=== PATIENT | female | born 1985 | race Caucasian/White ===

== ENCOUNTER → 2021-08-20 07:42 | Outpatient (CLI) | payer BC, SELFPAY ==
--- NOTE | ~2021-08-20 | US_ITS ---
EXAMINATION: US right upper quadrant EXAM DATE: 08/20/2021 08:19 INDICATION: Abdominal pain. TECHNIQUE: Multiple grayscale and Doppler images of the abdomen right upper quadrant were obtained (b y a technologist who performed the scan) and subsequently reviewed. There is no prior study for kamar bey. FINDINGS: The pancreatic head and body are normal in appearance. The pancreatic tail is not visualized. The l iver has normal echogenicity and contour. There are no focal liver lesions identified. There is no evidence of intrahepatic biliary duct dilation. Portal venous flow was seen in the hepatopedal, nor mal direction and has normal Doppler waveform. There is no right-sided hydronephrosis. Common bile duct measures 4 mm, which is normal. The gallbladder wall is normal in thickness, with ex pected amount of distention. No sonographic evidence of pericholecystic fluid. There is a periphera lly calcified gallstone in the gallbladder neck. Technologist performing exam reports patient did no t demonstrate sonographic John's sign. Please note that this sign is less reliable in patients who have received pain medication. There is small complex cystic region within the which appears to be either within the liver or in the gallbladder fossa between the gallbladder and liver, measuring about 2 cm. Gallbladder fossa which i s nonspecific. Could be chronic seroma but small abscess or cystic mass not excludable. IMPRESSION: 1. Small nonspecific complex cystic region at gallbladder fossa, differential diagnosis including se kari, less likely abscess or cystic mass. If clinically indicated, consider CT abdomen with contrast. 2. Cholelithiasis. Reviewed, dictated and finalized at location B. IMPRESSION: 1. Small nonspecific complex cystic region at gallbladder fossa, differential diagnosis including seroma, less likely abscess or cystic mass. If clinically i ndicated, consider CT abdomen with contrast. 2. Cholelithiasis.
== END ==
PROVIDERS: PCP Physician Assistant Medical; Visit Provider Physician Assistant Medical
DX: R10.9 Unspecified abdominal pain (principal); K80.20 Calculus of gallbladder without cholecystitis without obstruction
CPT/HCPCS: 76705

== ENCOUNTER → 2021-09-08 08:20 | Outpatient (CLI) | payer BC, SELFPAY ==
--- NOTE | ~2021-09-08 | CT_ITS ---
EXAMINATION: CT abdomen w con DATE: 09/08/2021 08:47 INDICATION: Abdominal pain TECHNIQUE: Computed tomography (CT) of the abdomen was performed with 100 cc Omnipaque 350 intravenou s contrast. Automated exposure control and iterative reconstruction technique were employed. Exam dos e: 356.03 mGy-cm total exam DLP. COMPARISON: 08/20/2021 right upper quadrant abdominal ultrasound FINDINGS: The lung bases are clear of infiltrate or consolidation. Normal heart size. No pericardial or pleural effusion. No hepatic space-occupying mass lesion. Normal splenic size. No pancreatic mass lesion, calcification or ductal dilatation. The gallbladder is present. The gallbladder is partially folded on itself, likely creating the appear ance of the cystic region adjacent to the gallbladder on recent ultrasound examination. No bile duct dilatation. Normal morphology of the adrenal glands. Approximately 2 cm right renal cyst. The kidneys are otherwise unremarkable. No hydronephrosis. Normal caliber of the abdominal aorta. No intraperitoneal or retroperitoneal mass lesion or adenopath y or ascites. Multiplanar containing umbilical hernia. Included skeletal structures are unremarkable. IMPRESSION: 2 cm right renal cyst Reviewed, dictated and finalized at Location A. Reviewed, dictated and finalized at location A. 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
== END ==
PROVIDERS: PCP Physician Assistant Medical; Visit Provider Internal Medicine
DX: R10.9 Unspecified abdominal pain (principal); R93.5 Abnormal findings on diagnostic imaging of other abdominal regions, including retroperitoneum; N28.1 Cyst of kidney, acquired
CPT/HCPCS: 74160; Q9967

== ENCOUNTER → 2023-05-19 07:12 | Outpatient (CLI) | payer BC, SELFPAY ==
--- NOTE | ~2023-05-19 | MM_ITS ---
EXAMINATION: MM screening kobe BI w prasanth HISTORY: Baseline screening mammogram TECHNIQUE: Craniocaudal and mediolateral oblique 3-D tomosynthesis images were obtained and synthetic 2-D images were generated. CAD analysis was submitted and interpreted. COMPARISON: None, baseline BREAST PARENCHYMAL COMPOSITION: The breasts are heterogeneously dense, which may obscure small masses . FINDINGS: No suspicious mass, calcification, or architectural distortion are identified in either jing ast to suggest malignancy. IMPRESSION: 1. No mammographic evidence of malignancy. 2. Recommend routine screening mammography in one year. BI-RADS Category 1: Negative Reviewed, dictated and finalized at location A.
== END ==
PROVIDERS: PCP Obstetrics & Gynecology; Visit Provider Obstetrics & Gynecology
DX: Z12.31 Encounter for screening mammogram for malignant neoplasm of breast (principal)
CPT/HCPCS: 77063; 77067

== ENCOUNTER 2024-10-01 14:26 | Outpatient (CLI) | payer BC, SELFPAY ==
--- NOTE | ~2024-10-01 | MM_ITS ---
EXAMINATION: MM screening kobe BI w prasanth HISTORY: Screening TECHNIQUE: Craniocaudal and mediolateral oblique 3-D tomosynthesis images were obtained and synthetic 2-D images were generated. CAD analysis was submitted and interpreted. COMPARISON: 05/19/2023 BREAST PARENCHYMAL COMPOSITION: Dense: The breasts are heterogeneously dense, which may obscure small masses FINDINGS: There is no evidence of suspicious mass, calcification, or architectural distortion to sugg est malignancy in either breast. There has been no suspicious interval change. IMPRESSION: 1. No mammographic evidence of malignancy. 2. Recommend routine screening mammography in one year. BI-RADS Category 1: Negative Reviewed, dictated and finalized at location B. SCOPY REGISTERED NURSE
== END 2024-10-01 14:27 | disposition home or self-care (01) ==
LOC: ANHIMG 14:27
PROVIDERS: PCP Physician Assistant Medical; Visit Provider Obstetrics & Gynecology
DX: Z12.31 Encounter for screening mammogram for malignant neoplasm of breast (principal)
CPT/HCPCS: 77063; 77067

== ENCOUNTER 2024-11-20 07:15 | Outpatient (CLI) | payer BC, SELFPAY ==
--- NOTE | ~2024-11-20 | NM_ITS ---
EXAMINATION: NM hepatobiliary wo pharm DATE: 11/20/2024 11:40 INDICATION: Calculus of gallbladder without cholecystitis. COMPARISON: CT abdomen and pelvis 09/08/2021 TECHNIQUE: 5.3 mCi Tc-99m mebrofenin (Choletec) was administered intravenously. Scintigraphic images of the abdomen were obtained for one hour. Delayed images were obtained at 75 minutes and 4 hours. FINDINGS: There is normal clearance of radiotracer from the blood pool. There is homogeneous tracer u ptake by the liver. Activity progresses to the bowel. There is no activity in the gallbladder. IMPRESSION: 1. Lack of activity in the gallbladder, consistent with acute cholecystitis. Reviewed, dictated and finalized at location A. 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
== END 2024-11-20 07:16 | disposition home or self-care (01) ==
PROVIDERS: PCP Physician Assistant Medical; Visit Provider Physician Assistant Medical
DX: K82.8 Other specified diseases of gallbladder (principal); K80.20 Calculus of gallbladder without cholecystitis without obstruction
CPT/HCPCS: 78226; A9537

== ENCOUNTER 2024-12-17 08:46 | Outpatient (CLI) | payer BC, SELFPAY ==
--- NOTE | ~2024-12-17 | US_ITS ---
EXAM: ABDOMEN ULTRASOUND HISTORY: K80.10 - Calculus of gallbladder with chronic cholecystit... COMPARISON: Reference is made to a HIDA scan dated 11/20/2024 (which demonstrated a lack of activity i n the gallbladder) as well as previous ultrasound of the right upper quadrant dated 08/20/2021 FINDINGS: LIVER: The liver is unremarkable in echogenicity and size measuring 15 cm in longitudinal dimension. The portal vein is patent demonstrating hepatopedal flow. The contour of the liver surface is smooth GALLBLADDER: The gallbladder is decompressed with multiple shadowing stones. No gallbladder wall thickening or pericholecystic fluid. BILE DUCTS: Common bile duct measures 4.7mm. PANCREAS: Limited evaluation of the pancreas secondary to overlying bowel gas IMPRESSION: Cholelithiasis, without sonographic evidence of acute cholecystitis. Reviewed, dictated and finalized at location A. 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
--- OUTSIDE RECORDS SUMMARY | 2024-12-17 09:20 | XMS_ITS | Patient Health Summary ---
Author Organization [facility] Address [address] [place] [address] Care Team Providers Care Prepress Technician Name Role Phone Unavailable Primary Care Provider Unavailabl e Note from [facility] [place],non-owned Affiliates and Associated Physician Practices is amultiple site organization consisting of ambulatory clinics and hospital sitesin [place], [place], [place] and [place]. This disclosure is being madepursuant to the Care Everywhere program and may not contain all information available regarding this patient. Last updated 18.[facility] [employer] Allergies No known active allergies Medications * Be aware that medications may not be up to date on this document. Alwaysverify current medications with the patient. * omeprazole (PRILOSEC) 10 MG capsule Take 10 mg by mouth daily before breakfast * cetirizine (ZYRTEC ALLERGY) 10 MG gel capsule Take 10 mg by mouth once daily Social History Tobacco Use Types Packs/Day Years Used Date Smoking Tobacco: Never Smokeless Tobacco: Never Sex and Gender Information Value Date Recorded Sex Assigned at Not on file Gender Identity Not on file Sexual Orientation Not on file Last Filed Vital Signs Vital Sign Reading Time Taken Comments Blood Pressure 122/72 08/15/2019 11:17 AM CDT Pulse 83 08/15/2019 11:17 AM CDT Temperature 36.8 C (98.3 F) 08/15/2019 11:17 AM CDT Respiratory Rate 16 08/15/2019 11:17 AM CDT Oxygen Saturation 99% 08/15/2019 11:17 AM CDT Inhaled Oxygen Concentration - - Weight 72.6 kg (160 lb) 08/15/2019 11:17 AM CDT Height 160 cm (5' 3 ) 08/15/2019 11:17 AM CDT Body Mass Index 28.34 08/15/2019 11:17 AM CDT Procedures * STREP A SCREEN - POINT OF CARE (AMB) STL(Performed 08/15/2019) Performed for Acute maxillary sinusitis, recurrence not specified Results * STREP A SCREEN - POINT OF CARE (AMB) STL (08/15/2019 11:19 AM CDT) Strep A Rapid POCT Negative Negative Strep A Internal Control Present Lot # [id number] Expiration Date 11/22/2020 Throat ENTIRE THROAT (SURFACE REGION OF NECK) / Unknown 08/15/2019 11:19 AM CDT Ebony Vigil MAGNETIC RESONANCE IMAGING DIRECTOR-PRINTING [facility]LL[facility] - POINT OF CA RE ORDERABLES
--- OUTSIDE RECORDS SUMMARY | 2024-12-17 09:20 | XMS_ITS | Referral Summary ---
Author Organization [facility] Address [address] [place] [address] Care Team Providers Care Manager Project Management Name Role Phone Unavailable Primary Care Provider Unavailabl e Source Comments [facility],non-owned Affiliates and Associated Physician Practices is amultiple site organization consisting of ambulatory clinics and hospital sitesin [place], [place], [place] and [place]. This disclosure is being madepursuant to the Care Everywhere program and may not contain all information available regarding this patient. Last updated 18.[employer] [facility] Allergies No known active allergies Medications * Be aware that medications may not be up to date on this document. Alwaysverify current medications with the patient. Medication Sig Dispensed Refills Start Date End Date Status omeprazole (PRILOSEC) 10 MG capsule Take 10 mg by mouth daily before breakfast Active cetirizine (ZYRTEC ALLERGY) 10 MG gel capsule Take 10 mg by mouth once daily Active Social History Tobacco Use Types Packs/Day Years [...] Mass Index 28.34 08/15/2019 11:17 AM CDT Plan of Treatment Not on file [id number] [id number]
--- OUTSIDE RECORDS SUMMARY | 2024-12-17 09:20 | XMS_ITS | Clinical Summary ---
Author Organization [facility] Address [address] [place] [address] Care Team Providers Care Pourer Crane Ladle Name Role Phone Unavailable Primary Care Provider Unavailabl e Source Comments [facility],non-owned Affiliates and Associated Physician Practices is amultiple site organization consisting of ambulatory clinics and hospital sitesin [place], [place], [place] and [place]. This disclosure is being madepursuant to the Care Everywhere program and may not contain all information available regarding this patient. Last updated 18.[employer] [facility] Allergies No known active allergies Medications * [...] 10 mg by mouth once daily Active Family History Medical History Relation Name Comments Cancer - Skin, Melanoma Father Hypertension Father Relation Name Status Comments Father Social History Tobacco Use Types Packs/Day Years [...] 08/15/2019 11:17 AM CDT Plan of Treatment Health Maintenance Due Date Last Done Comments LIPID TESTING 1983 MAMMOGRAM 1983 PAP SMEAR 1983 HIV SCREENING 1998 HEPATITIS C SCREENING 05/13/2001 DTAP/TDAP/TD VACCINES (1 - Tdap) 2002 HEPATITIS B VACCINE (1 of 3 - 19+ 3-dose series) 2002 COVID-19 VACCINE ( - 2023-2 5 season) 2024 INFLUENZA VACCINE (#1) 2024 DEPRESSION SCREENING 10/23/2024 ZOSTER VACCINE (1 of 2) 2033 HIB VACCINE Aged Out No longer eligi ble based on patient's age to complete this topic HPV VACCINE Aged Out No longer eligi ble based on patient's age to complete this topic MENINGOCOCCAL (Group B) VACCINE Aged Out No longer eligible based on patient's age to complete this topic MENINGOCOCCAL VACCINE Aged Out No lizbeth ariadne eligible based on patient's age to complete this topic PNEUMOCOCCAL VACCINE Aged Out No long er eligible based on patient's age to complete this topic
== END 2024-12-17 08:47 | disposition home or self-care (01) ==
PROVIDERS: PCP Physician Assistant Medical; Visit Provider Surgery
DX: K80.20 Calculus of gallbladder without cholecystitis without obstruction (principal)
CPT/HCPCS: 76705

== ENCOUNTER 2024-12-20 08:37 | Outpatient (CLI) | payer BC, SELFPAY ==
[2024-12-20 09:12] LABS: Basophils Percent Auto 0.4 % (0.2-1.2); Eosinophils Percent Auto 0.4 % (0-4.4); Hematocrit 40.3 % (37.0-47.0); Hemoglobin 13.4 g/dL (12.0-15.0); Immature Granulocyte Absolute 0.02 K/mm3 (0.00-0.031); Immature Granulocyte Percent A 0.2 % (0-0.5); Mean Corpuscular HGB Conc 33.3 g/dl (32-36); Mean Corpuscular Hemoglobin 29.5 pg (26-34); Mean Corpuscular Volume 88.6 fl (80-100); Monocytes Absolute Auto 0.4 K/mm3 (0.1-0.6); Monocytes Percent Auto 5.2 % (2.6-8.5); Neutrophils Absolute Auto 4.9 K/mm3 (1.3-6.7); Neutrophils Percent Auto 58.8 % (45.5-73.1); Platelet Count Result 267 k/mm3 (150-375); Red Blood Count 4.55 M/mm3 (4.2-5.4); Red Cell Distribution Width 13.7 % (11.5-14.5); White Blood Count 8.3 K/mm3 (4.5-10.0)
[2024-12-20 09:34] LABS: Alanine Aminotransferase 39 U/L (6-35); Albumin Level 3.9 g/dL (3.5-5.1); Alkaline Phosphatase 99 U/L (38-126); Amylase 60 U/L (30-110); Aspartate Amino Transferase 23 U/L (14-36); Bilirubin,Total 0.8 mg/dL (0.2-1.3); Lipase 54 U/L (23-300)
== END 2024-12-20 08:38 | disposition home or self-care (01) ==
PROVIDERS: PCP Physician Assistant Medical; Visit Provider Surgery
DX: K80.10 Calculus of gallbladder with chronic cholecystitis without obstruction (principal)
CPT/HCPCS: 36415; 80076; 82150; 83690; 85025

== ENCOUNTER 2024-12-25 01:29 | Day surgery (SDC) | payer BC, SELFPAY ==
[2024-12-17 12:34] VITALS: BMI 31.0
--- NOTE | 2024-12-17 12:41 | PC.NURSE ---
Addendum entered by Marcela Maurice RN 12/24/24 13:04: Pt called inquiring about time change listed in portal. Notified of surgery time 0930, with arrival time of 0730. Pt also instructed to stop clear liquids by 0630 (maximum of 20 oz). Pt verbalizes understanding. Original Note: Report to the Outpatient Waiting Room, entrance under the green pavilion located off [facility], at time _0830_ on date _[id number]_. Planned Procedure Time: _1030_.? Time changes happen often and if your time is changed the preop area will call you the afternoon before. - You and your visitor will be asked to self-screen and do not enter if you have any COVID symptoms. Please call surgeon if you need to reschedule. - A mask is optional within the hospital at this time. Patients may have clear liquids (water, carbonated beverages, clear teas, apple juice) until 3 hours prior to surgery with a maximum of 20 ounces. - No food from midnight until time of surgery and no smoking, or chewing tobacco (or any form of nicotine). No chewing gum, candy or mints. Take only the following medications with a SIP of water on the morning of surgery: __Thyroid DO NOT STOP ANY OF YOUR OTHER PRESCRIPTION MEDICATIONS PRIOR TO SURGERY EXCEPT THE FOLLOWING Hold all vitamins and supplements for 3 days per anesthesiologist. Medications to discontinue per physician Date to take last igab___[phone]____ Please no make-up, nail palestinian, hairspray, perfume, deodorant, or body powder the day of surgery.? No jewelry (including any body piercings) or valuables the day of surgery, leave them at home.? Please take a shower or bath the night before, or the morning of, surgery with an antibacterial soap.? Wear comfortable, loose fitting clothing.? - Jewelry must be removed prior to entering the operating room.? Rings and piercings that are not removed may be cut off. - The hospital will not accept responsibility for valuables.? - Please leave all valuables, including medications, at home the day of surgery. If you are going home after surgery, a licensed shuttle driver must drive you home.? - NO public transportation without another adult if you receive anesthesia. - We recommend that an adult stay with you for 24 hours following discharge. - We also recommend that you do not drive, make important decision, drink alcoholic beverages, or take any drugs that were not prescribed by your health care provider for at least 24 hours after your discharge time. Follow any additional instructions given to you from your surgeon. Telephone instructions given to __Cassidy__and asked if any additional questions and then verbalized understanding. Patient advised to call surgeon office or pre surgery nurse liaison [phone] if any additional questions.
[2024-12-25] VITALS (10 sets, daily range): BP systolic 126–141; BP diastolic 72–99; PULSE 71–88; RESP 10–20; TEMP 36.3–36.9; O2SAT 99–100
--- OUTSIDE RECORDS SUMMARY | 2024-12-25 01:32 | XMS_ITS | Patient Health Summary ---
Author Organization [facility] Address [address] [place] [address] Care Team Providers Care Medical Records Supervisor Name Role Phone Unavailable Primary Care Provider Unavailabl e Note from [facility] [place],non-owned Affiliates and Associated Physician Practices is amultiple site organization consisting of ambulatory clinics and hospital sitesin [place], [place], [place] and [place]. This disclosure is being madepursuant to the Care Everywhere program and may not contain all information available regarding this patient. Last updated 18.[facility] [employer] Allergies No known active allergies Medications * [...] Strep A Internal Control Present Lot # [id number] Expiration Date 11/22/2020 Throat ENTIRE THROAT (SURFACE REGION OF NECK) / Unknown 08/15/2019 11:19 AM CDT Ebony Vigil CONGRESSIONAL ASSISTANT-GLUE SPRAYER LAB - POINT OF [place] RE ORDERABLES
--- OUTSIDE RECORDS SUMMARY | 2024-12-25 01:32 | XMS_ITS | Clinical Summary ---
Author Organization [facility] Address [address] [place] [address] Care Team Providers Care Mandrel Puller Name Role Phone Unavailable Primary Care Provider Unavailabl e Source Comments [facility],non-owned Affiliates and Associated Physician Practices is amultiple site organization consisting of ambulatory clinics and hospital sitesin [place], [place], [place] and [place]. This disclosure is being madepursuant to the Care Everywhere program and may not contain all information available regarding this patient. Last updated 18.[employer] [facility] Allergies No known active allergies Medications * [...]
--- OUTSIDE RECORDS SUMMARY | 2024-12-25 01:32 | XMS_ITS | Referral Summary ---
Author Organization [facility] Address [address] [place] [address] Care Team Providers Care Caterers Helper Name Role Phone Unavailable Primary Care Provider Unavailabl e Source Comments [facility],non-owned Affiliates and Associated Physician Practices is amultiple site organization consisting of ambulatory clinics and hospital sitesin [place], [place], [place] and [place]. This disclosure is being madepursuant to the Care Everywhere program and may not contain all information available regarding this patient. Last updated 18.[facility] Allergies No known active allergies Medications * [...] CDT Plan of Treatment Not on file [id number] [id number]
--- NOTE | 2024-12-25 07:05 | WPDHPUPDATE1 ---
History and Physical Update Update Date/Time: 12/25/24 07:05 History and Physical has been reviewed, including an updated exam of the patient. There are NO changes in the patient's condition. Risks, benefits, and alternatives have been discussed and questions answered. Patient agrees to proceed with procedure.
[2024-12-25] MEDS: ACETAMINOPHEN 500 MG TABLET 1000 MG PO (08:21)
[2024-12-25] MEDS: LACTATED RINGERS 1,000 ML 30 ML IV CONT ×2 (08:25→11:41)
[2024-12-25] MEDS: KETOROLAC 15 MG/ML VIAL (*BKC) IV PUSH (08:27)
--- NOTE | 2024-12-25 08:59 | WPDANESEPPF ---
Anes - Initial Pre Proc Eval Procedure: Operation Date: 12/25/24 09:30 Proposed Procedures p Laparoscopic Cholecystectomy - Curtis Butts MD Date/Time: 12/25/24 08:59 Surgeon: Curtis Butts MD Pre Op Diagnosis: chronic cholecystitis with stones Patient Data Age: 39 Gender: F Height: 1.6 m Weight: 78.2 kg Allergies Allergy/AdvReac Type Severity Reaction Status Date / Time No Known Allergies Allergy Verified 12/17/24 12:33 Home Medications ?Medication ?Instructions ?Recorded ?Confirmed ?Type omeprazole 20 mg capsule,delayed 20 mg PO DAILY 11/10/23 12/25/24 History release Sprintec (28) 0.25 mg-35 mcg 1 tablet PO DAILY #84 tabs 02/09/24 12/25/24 Rx tablet (norgestimate-ethinyl estradiol) thyroid (pork) 60 mg tablet 60 mg PO DAILY #90 tabs 08/30/24 12/25/24 Rx ([place] Thyroid) cyanocobalamin (vitamin B-12) 1,000 mcg PO DAILY 12/17/24 12/25/24 History 1,000 mcg tablet,extended release (Vitamin B-12 ER) Patient hx anesthesia problems: none Family hx anesthesia problems: none Results Review: All pre-operative results and documents have been reviewed as part of the pre-operative evaluation. [facility] Past Medical History Medical History (Updated 12/25/24 @ 08:59 by Xander Moody MD) Obesity Cholelithiasis Hypothyroidism rx meds Surgical History Surgical History History of colposcopy with cervical biopsy 01/30/14 History of hand surgery left hand surgery History of lymph node biopsy 11/18/19 benign Family History Family History Father Hypertension Malignant melanoma Grandparent Hypertension paternal grandfather Cerebrovascular accident paternal grandfather Social History Social History Social History: 11/03/24 very confident with medical forms Smoking status: Never smoker Second hand tobacco smoke exposure: No Alcohol intake: never Substance use: never Substance use type: does not use Do You Feel Safe in your Home?: Yes Lack of Transportation: No Lack of Food: Never True Current Housing: I Have Housing Concerned About Future Housing: No Difficulty Paying Gas/Electric Bills: No Difficulty Paying for Meds: No Currently Unemployed: No Education: Decline to Answer Difficulty w/ Childcare or Family Care: No Living arrangements: with family Additional living arrangements comments: spouse Occupation/Education: occupation 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 Gender identity (if verbalized by the patient): Female Sexual Orientation (if Verbalized by the Patient): Straight or Heterosexual Spiritual care concerns: No Anes - Eval Final PreProcedure Day of Procedure 12/25/24 08:59 Patient weight: obese Heart: regular rate and rhythm Lungs: clear to auscultation Airway: Mallampati scale class II Neurological: alert and oriented Last oral intake: >/= 8 hours ASA classification: II Emergent: no Anesthetic plan: proceed Anesthesia type and monitoring: general ETT and standard monitoring Results Review: All pre-operative results and documents have been reviewed as part of the pre-operative evaluation. Informed Consent: The patient's anesthetic plan and its attendant risks and benefits were discussed with the patient/family/POA. Questions were solicited and answers provided to the satisfaction of the patient/family/POA.
[2024-12-25 09:33] LABS: BEDSIDEPREGUCG Negative (Negative)
[2024-12-25] MEDS: ceFAZolin 2 GM/D5W 50 ML 2 GM/50 ML BAG IVPB (09:42)
[2024-12-25] MEDS: BUPIVACAINE/EPINEPHRINE 0.5% 50 ML VIAL 30 ML INFILTRATE (10:15)
--- NOTE | 2024-12-25 11:23 | SUR.OPER ---
frozen section delivered to [facility] in pathology
--- NOTE | 2024-12-25 11:41 | W.PM.PROC2 ---
Procedure Note - Detailed Date of Procedure 12/25/24 Pre-op Diagnosis chronic cholecystitis with stones Post-op Diagnosis Same Procedure Performed Laparoscopic cholecystectomy with liver biopsies Surgeon Curtis Butts MD Addiction Therapist Adam ESTEVEZ, Tahira ESTEVEZ Anesthesia General and Local Indications Patient has been having postprandial epigastric pain after eating since September. It started after eating nachos and a salad with fried chicken. Pain has been recurring and severe. Pain radiates to her back. She had an ultrasound in 2020 that showed gallstones. She had an hepatobiliary scan recently which showed nonvisualization of the gallbladder consistent with cholecystitis. She is taken to surgery now for laparoscopic cholecystectomy. Findings Patient had severe chronic inflammation with dense omental adhesions to the liver and the edge of the gallbladder. Initially I could not even see the gallbladder. Eventually the gallbladder was able to be found and freed from the surrounding omental adhesions. Once the gallbladder was removed there was some fibrous cyst, somewhat glandular appearing tissue near the fundus in the gallbladder fossa. This was biopsied and frozen section showed The gallbladder wall was very fibrotic difficult to dissect. Patient had evidence of fatty liver. There was no biliary ductal dilatation. Description of Procedure Patient was taken to surgery and induced into general anesthesia. The abdomen is prepped and draped. Trocars were placed in the usual fashion using [employer] optical trocars and a 5 mm camera. Once the trocars were in place, it was immediately evident that fatty liver was present and the gallbladder was completely in cased with adhesions. It was difficult to elevate the liver due to fatty change in bleeding as it was fragile. These were omental adhesions and were taken down with dissecting scissors and cautery using blunt and sharp dissection. Eventually we came to a dining room supervisor colored area of tissue that seemed to be the gallbladder although it was nearly completely intrahepatic. We were able to grasp this tissue an elevate the liver. I continued the adhesiolysis and then saw a rounded more goblet like structure. Initially I was afraid this was the duodenum and patient was passing a stone into the duodenum. After further dissection, turned out this was the gallbladder. I then had the LigaSure brought into the field. I used the LigaSure to take down the surrounding omental adhesions as they occupied most of the liver on the lateral side of the gallbladder. Once these were down, I still had some obscuring of the gallbladder by the medial segment of the left lobe of the liver. A 5th trocar was placed and the medial lobe was retracted for better visualization. Gallbladder dissection in the cholecystohepatic triangle was carried out. There was severe fibrosis over the surface but eventually, using the hook cautery, I was able to delineate the cystic duct. I searched for the cystic artery but was never able to find it. It must have been small and cauterized during the dissection. I dissected the gallbladder completely off the liver. The only attachment remaining was the cystic duct. During the dissection of the gallbladder off the liver, a large stone extruded from the gallbladder. I removed this using a stone forceps. I then securely clipped and divided the cystic duct. The gallbladder was removed in an Endo-Catch bag. I then replaced the 10 11 trocar and reviewed the gallbladder fossa. It was irrigated and suctioned repeatedly. Cautery was used and hemostasis was achieved. At the level of the most dense omental scarring, there was some abnormal appearing tissue at the edges of the gallbladder fossa. This had almost a glandular appearance. I went ahead and excised the medial aspect of this as well as the lateral aspect. Frozen section was obtained and showed this to be scar tissue with no evidence of cancer. The 2 biopsy sites were made hemostatic with the cautery. Further irrigation and suctioning were performed. All looked good with no evidence of bleeding or bile leakage. We then evacuated CO2 and removed the trocar sleeves. Skin wounds were closed with subcuticular 4-0 Monocryl skin suture. The wounds were dressed with Exofin surgical adhesive. Patient was awakened and taken to recovery in good condition. Sponge and needle counts were correct x2. Estimated Blood Loss -50 Drains No Packing No Pathology Yes (Gallbladder) Complications None Condition Stable Disposition PACU [facility] Billing Surgery - Charge Forward: Surgery Billing (Laparoscopic cholecystectomy)
[2024-12-25] MEDS: fentaNYL CITRATE INJ (*CRX) 100 MCG/2 ML VIAL 25 MCG IV PUSH ×4 (12:00→12:17)
[2024-12-25] MEDS: oxyCODONE HCL (*CRX) 5 MG TAB IR PO (13:05)
== END 2024-12-25 14:15 | disposition home or self-care (01) ==
PROVIDERS: PCP Physician Assistant Medical; Visit Provider Surgery
PROC: 0FT44ZZ Resection of Gallbladder, Percutaneous Endoscopic Approach (ICD-10-PCS; CPT 47562; principal; 2024-12-25 09:30)
DX: K80.10 Calculus of gallbladder with chronic cholecystitis without obstruction (principal); K66.0 Peritoneal adhesions (postprocedural) (postinfection); L90.5 Scar conditions and fibrosis of skin; R58 Hemorrhage, not elsewhere classified; G89.18 Other acute postprocedural pain; E03.9 Hypothyroidism, unspecified; K21.9 Gastro-esophageal reflux disease without esophagitis; E66.9 Obesity, unspecified; Z68.30 Body mass index [BMI] 30.0-30.9, adult; Z98.890 Other specified postprocedural states; Z80.8 Family history of malignant neoplasm of other organs or systems; Z82.49 Family history of ischemic heart disease and other diseases of the circulatory system
CPT/HCPCS: 47562; 47379; 88304; 88305; 88331; A9270; J0690; J1100; J1885; J2250; J2405; J2704; J3010; J7120

== ENCOUNTER 2025-06-19 14:15 | Outpatient (CLI) | payer BC, SELFPAY ==
--- NOTE | ~2025-06-19 | MMUS_ITS ---
EXAMINATION: US axilla LT, MM diagnostic kobe BI w prasanth INDICATION: 40-year old female; presents for evaluation of the localized swelling lump in the left axilla for 3 months. She has been on antibiotic and lesion is getting smaller. COMPARISON: Mammogram 10/01/2024 and 05/19/2023 TECHNIQUE: Digital breast tomosynthesis true lateral, CC and MLO views of the BILATERAL breast were obtained with computer-aided detection to assist in interpretation of the study. A radiopaque skin marker was placed over the area of left axillary swelling. Targeted ultrasound of the area of swelling in the left axilla was completed. MAMMOGRAM FINDINGS: The breasts are heterogeneously dense, which may obscure small masses. There is a circumscribed mass seen in the superior central 12:00 location in posterior third of the left breast. There are no other suspicious masses, calcifications, architectural distortion or any other abnormality in either breast. No suspicious mammographic abnormality correlates to the radiopaque skin marker. LEFT BREAST ULTRASOUND FINDINGS: Targeted evaluation of the left axillary palpable lump and upper central left breast was completed. There is a superficial heterogeneous hypoechoic mass with surrounding echogenic halo, demonstrate increased vascularity, and measure 1.02 x 1.38 x 0.32 cm. There is thickening of the overlying skin. This finding compatible with an inflammatory mass correlates to the palpable left axillary lump. At 12:00 location, 5 cm from the nipple there is a 0.6 x 0.4 x 0.5 cm hypoechoic mass which correlates to the mammographic finding. IMPRESSION: 1. Left axilla Residual inflammatory mass correlates to the palpable lump. No drainable abscess formation. 2. Probably benign left breast mass at 12:00 location. RECOMMENDATIONS: Clinical management of patient's palpable lump in the left axilla. Short-term follow-up diagnostic left mammography and left breast ultrasound in 6 months. BI-RADS 3, PROBABLY BENIGN Reviewed, dictated and finalized at location B. IMPRESSION: 1. Left axilla Residual inflammatory mass correlates to the palpable lump. No d rainable abscess formation. 2. Probably benign left breast mass at 12:00 location. RECOMMENDATIONS: Clinical management of patient's palpable lump in the left axilla. Short-term follow-up diagnostic left mammography and left breast ultrasound in 6 months. BI-RADS 3, PROBABLY BENIGN
== END 2025-06-19 14:16 | disposition home or self-care (01) ==
LOC: MICIMG 14:16
PROVIDERS: PCP Physician Assistant Medical; Visit Provider Nurse Practitioner Family
DX: R92.8 Other abnormal and inconclusive findings on diagnostic imaging of breast (principal)
CPT/HCPCS: 76882; 77062; 77066; G0279

== ENCOUNTER 2025-10-03 13:42 | Outpatient (CLI) | payer BC, SELFPAY ==
--- NOTE | ~2025-10-03 | MM_ITS ---
EXAMINATION: MM screening kobe BI w prasanth HISTORY: Screening. TECHNIQUE: Craniocaudal and mediolateral oblique 3-D tomosynthesis images were obtained and synthetic 2-D images were generated. CAD analysis was submitted and interpreted. COMPARISON: 2024, 2023, and 2022. BREAST PARENCHYMAL COMPOSITION: Dense: The breasts are heterogeneously dense FINDINGS: There are waxing and waning circumscribed nodules/masses, consistent with breast cysts. No suspicious masses are seen. There are no suspicious calcifications. No unexplained architectural distortion is seen. There are no skin or nipple abnormalities identified. There is no adenopathy seen on the images submitted. IMPRESSION: No mammographic evidence to suggest malignancy is seen. The patient may return to screening mammography as per ACR guidelines. BI-RADS 2 - Benign. Reviewed, dictated and finalized at location C. [place] [employer]
== END 2025-10-03 13:43 | disposition home or self-care (01) ==
LOC: ANHFOHIMG 13:44
PROVIDERS: PCP Physician Assistant Medical; Visit Provider Obstetrics & Gynecology
DX: Z12.31 Encounter for screening mammogram for malignant neoplasm of breast (principal)
CPT/HCPCS: 77063; 77067